=== PATIENT | male | born 1970 | race Caucasian/White ===

== ENCOUNTER → 2022-11-27 | Outpatient (CLI) | payer BC ==
--- NOTE | 2022-11-27 12:23 | XR ---
EXAMINATION TYPE: XR shoulder complete 3 views LT DATE OF EXAM: 11/27/2022 Comparison: None Clinical History: 52-year-old male [id number] LT SHLD PAIN Findings: AC joint is intact. Subacromial space is preserved. No acute fracture, subluxation, dislocation. Impression: No acute osseous abnormality seen.
== END | disposition home or self-care (01) ==
LOC: RADXRYALE 10:30
PROVIDERS: ATTEND Family Medicine
DX: M25.512 Pain in left shoulder (principal)

== ENCOUNTER → 2023-05-12 | Outpatient (CLI) | payer BC ==
--- NOTE | 2023-05-14 06:26 | MR ---
EXAMINATION TYPE: MR shoulder LT wo con DATE OF EXAM: 05/12/2023 COMPARISON: Left shoulder x-ray November 27, 2022 HISTORY: Pain left shoulder, Painful to raise above head TECHNIQUE: Multiplanar, multisequence imaging of the left shoulder is performed without contrast. FINDINGS: Rotator Cuff: Some increased signal in the supraspinatus tendon with partial tearing of the posterior fibers. There is more prominent full-thickness retracted tear of the infraspinatus tendon retracted to level of the acromion coronal image 18. Subscapularis tendon intact. Rotator cuff muscle bulk pres erved. Acromioclavicular Joint: Mild to moderate narrowing. No significant spurring. Glenohumeral Joint: Small sized joint effusion. No significant spurring. Labrum: The labrum appears grossly intact given limitation of non-arthrogram study. Biceps Tendon: The long head of biceps is in normal location within bicipital groove. Bone marrow signal: No focal abnormal marrow signal is appreciated. Other: No additional significant abnormality is appreciated. IMPRESSION: 1. Full-thickness retracted tear of the infraspinatus tendon. Tendinosis and partial tearing of the s upraspinatus tendon.
== END | disposition home or self-care (01) ==
LOC: RADMRIMAIN 19:15
PROVIDERS: ATTEND Family Medicine
DX: M67.814 Other specified disorders of tendon, left shoulder (principal); M24.812 Other specific joint derangements of left shoulder, not elsewhere classified; M75.122 Complete rotator cuff tear or rupture of left shoulder, not specified as traumatic; M75.112 Incomplete rotator cuff tear or rupture of left shoulder, not specified as traumatic; M19.011 Primary osteoarthritis, right shoulder